=== PATIENT | female | born 1955 | race Caucasian/White ===

== ENCOUNTER 2025-07-02 09:42 | Outpatient (OUT) | payer SELFPAY ==
--- OUTSIDE RECORDS SUMMARY | 2022-09-15 10:15 | XMS_ITS | Continuity of Care Document ---
[facility] Address [address] [place] [address] Phone Care Team Providers Care Emergency Spill Response Technician Name Role Phone Leroy Osborne Unavailable Unavailable Procedures Procedure Date Admin Moderna Bvalent Booster 18 And Old er Moderna Bivalent Booster 18 And Older No v Admin influenza virus vac FLU VACC PRSV FREE INC ANTIG Admin influenza virus vac FLU VACC PRSV FREE INC ANTIG Admin pneumococcal vaccine PNEUMOCOCCAL VACCINE Admin influenza virus vac FLU VACC PRSV FREE INC ANTIG Admin influenza virus vac FLU VACC PRSV FREE INC ANTIG Admin pneumococcal vaccine PNEUMOCOCCAL VACC, 13 LI IM UDS Exempt FLU VAC NO PRSV 4 LI 3 YRS+ UDS Exempt IMMUNIZATION ADMIN FLU VAC NO PRSV 4 LI 3 YRS+ IMMUNIZATION ADMIN FLU VAC NO PRSV 4 LI 3 YRS+ FLU VAC NO PRSV 4 LI 3 YRS+ IMMUNIZATION ADMIN FLU VAC NO PRSV 4 LI 3 YRS+ FLU VAC NO PRSV 4 LI 3 YRS+ IMMUNIZATION ADMIN FLU VAC NO PRSV 4 LI 3 YRS+ Advance Directives Directive Yes / No Effective Date File Name No Information Encounters Encounter Description Practice Location Reason(s) For Visit Diagnoses Date Provider Providers Copied on Encounter [facility] [address], [place], [id number], [place] tel:[phone] [facility] No Information Visci DO Leroy. [address], [place], [id number], [place]. tel:[phone] [facility] [address], [place], [id number], [place] tel:[phone] [facility] No Information Visci DO Leroy. [address], [place], [id number], [place]. tel:[phone] [facility] [address], [place], [id number], [place] tel:[phone] [facility] No Information Visci DO Leroy. [address], [place], [id number], [place]. tel:[phone] [facility] [address], [place], [id number], [place] tel:[phone] [facility] No Information Visci DO Leroy. [address], [place], [id number], [place]. tel:[phone] [facility] [address], [place], [id number], [place] tel:[phone] [facility] No Information Visci DO Leroy. [address], [place], [id number], [place]. tel:[phone] [facility] [address], [place], [id number], [place] tel:[phone] COVID [facility] Encounter for screening for other viral diseases Visci DO Leroy. [address], [place], [id number], [place]. tel:[phone] [facility] [address], [place], [id number], [place] tel:[phone] [facility] No Information Roddy Figueroa. [address], [place], [id number], [place]. tel:[phone] [facility] [address], [place], [id number], [place] tel:[phone] [facility] No Information Roddy Figueroa. [address], [place], [id number], [place]. tel:[phone] [facility], [address] [place] [address], [id number], [place] tel:[phone] [facility] No Information Roddy Figueroa. [address], [place], [id number], [place]. tel:[phone] [facility] [address], [place], [id number], [place] tel:[phone] [facility] No Information Roddy Figueroa. [address], [place], [id number], [place]. tel:[phone] [facility] [address], [place], [id number], [place] tel:[phone] [facility] No Information Roddy Figueroa. [address], [place], [id number], [place]. tel:[phone] Family History Family Member Type Diagnosis Age At Onset No Information Immunizations Vaccine Date Status Comments -19 administered Source: New Imm unization Record Influenza, quadrivalent, hig h dose, injectable, split virus, preservative free, 0.7 mL dose, Fluzone High-Dose Quad administered Source: New Immuniza tion Record Influenza, quadrivalent, hig h dose, injectable, split virus, preservative free, 0.7 mL dose, Fluzone High-Dose Quad administered Source: New Immuniza tion Record Pneumo (2 yrs or older)(PPV) administered Source: New Immunization Record Influenza, quadrivalent, hig h dose, injectable, split virus, preservative free, 0.7 mL dose, Fluzone High-Dose Quad administered Source: New Immuniza tion Record Influenza, high dose seasonal administere d Source: New Immunization Record Pneumococcal conjugate PCV 13 administere d Source: New Immunization Record Influenza virus vaccine, quadrivalent, split virus, preservative free administered Note: Administered Kamran Salguerodanielle 08/29/2018. ; Source: New Immunization Record Influenza virus vaccine, injectable, quadrivalent, split virus, preservative free, 3 years or older Fluarix, Flulaval or Fluzone Quad administered Source: New Immuniza tion Record Influenza virus vaccine, injectable, quadrivalent, split virus, preservative free, 3 years or older Fluarix, Flulaval or Fluzone Quad administered Source: New Immuniza tion Record Influenza virus vaccine, injectable, quadrivalent, split virus, preservative free, 3 years or older Fluarix, Flulaval or Fluzone Quad administered Source: New Immuniza tion Record Payers Payer name Insurance type Covered constitution party ID Authoriza tion(s) Medicare PPS MB [id number] Medicare PPS MB [id number] Medicare PPS MB [id number] Medicare PPS MB [id number] Medicare PPS MB [id number] Medicare PPS MB [id number] Medicare PPS MB [id number] Social History Type Description Quantity Date Captured Comments Alcohol Use Details Unknown Caffeine Use Details Unknown Tobacco Use Status No Information Smoking Status No Information Sex Female Sexual Orientation Straight or heterosexual Gender Identity Female Chief Complaint And Reason For Visit No Information Reason For Referral Reason For Referral No Information Plan Of Treatment Date Type Action Status Goal Lipid panel. Due on 022 due Goal FOBT. Due on due Goal Colonoscopy. Due on due Goal Influenza vaccine. Due on Oc t due Goal Tdap. Due on due Goal PRAPARE ASSESSMENT. Due on N due Goal Depression screening. Due on due Goal Zoster vaccine (). Due on due Goal Mammogram. Due on due Goal Lipid panel. Due on due Goal FOBT. Due on due Goal Colonoscopy. Due on due Goal Influenza vaccine. Due on Oc t due Goal Tdap. Due on due Goal PRAPARE ASSESSMENT. Due on O ct due Goal Depression screening. Due on due Goal Zoster vaccine (). Due on due Goal Mammogram. Due on due History Of Present Illness Encounter Date Complaint History Of Prese nt Illness No Information Functional Status Date Functional Assessmen t No Information Instructions Date Instruction Additional Infor mation No Information Assessments Type Assessment Date No Information Patient Care Teams Name Effective Dates (start - stop) Status Members No Information
--- OUTSIDE RECORDS SUMMARY | 2025-07-02 09:43 | XMS_ITS | Clinical Summary ---
Author Organization [facility] Address [address] [place] [address] Care Team Providers Care Radiologist Physician Name Role Phone Vera Lesli HAMMONDS Primary Care Provider [phone] Allergies No known active allergies Medications hydroCHLOROthia zide (HYDRODiuril) 50 MG tablet 1 (one) time each day at the same time. Active losartan (Cozaar) 100 MG tablet 1 (one) time each day at the same time. Active Multiple Vitamins-Minera ls (Multivitamin Adults) tablet as directed Orally Active Multiple Vitamins-Minera ls (PreserVision AREDS 2) capsule as directed Orally Active potassium chloride CR (Klor-Con) 10 MEQ ER tablet 3 Active atorvastatin (Lipitor) 20 MG tablet 4 Active meloxicam (Mobic) 15 MG tablet .COMPLEX 4 Active albuterol HFA (Ventolin HFA) 90 mcg/act inhalerIndicati ons:Pneumonia of both lower lobes due to infectious organism Inhale 2 puffs every 4 (four) hours if needed for wheezing 18 g 5 06/03/20 26 Active benzonatate (Tessalon) 100 MG capsuleIndicati ons:Pneumonia of both lower lobes due to infectious organism Take 1 capsule (100 mg) by mouth 2 (two) times a day as needed for cough for up to 10 days 20 capsule 5 06/13/20 25 doxycycline (Vibramycin) 100 MG capsuleIndicati ons:Pneumonia of both lower lobes due to infectious organism Take 1 capsule (100 mg) by mouth in the morning and 1 capsule (100 mg) before bedtime. Do all this for 10 days. Take with at least 8 ounces (large glass) of water, do not lie down for 30 minutes after. 20 capsule 06/13/20 25 Active Problems Problem Noted Date Diagnosed Date Breast cancer screening other than mammogram 04/2024 Fibrocystic breast changes 08/21/2023 Hoarseness 08/21/2023 Hypercalcemia 08/21/2023 Hyperparathyroidism 08/21/2023 Status post parathyroidectomy 08/21/2023 Vocal cord paralysis 08/21/2023 Encounters Date Type Department Care Team Description 06/18/2025 Telephone [facility] [address] [place] [address] Gege Kohli MA 06/03/2025 12:45 PM EDT Ancillary Procedure [facility] [address] [place] [address] 06/03/2025 12:30 PM EDT Office Visit [facility] [address] [place] [address] Onur López, DO Pneumonia of both lower lobes due to infectious organism; Pharyngitis, unspecified etiology; Acute cough 06/03/2025 Travel from Last 3 Months Immunizations Immunization Administration Dates Next Due Influenza, injectable, quadrivalent, preservativ e free 08/19/2016 Influenza, seasonal, injectable, preservative fr ee 08/13/2017 Family History Medical History Relation Name Comments Suicidality Father Cancer Mother Diabetes Mother Heart disease Mother Hypertension Mother Cancer Mother's Sister Heart disease Mother's Sister Hypertension Mother's Sister No Known Problems Sister Relation Name Status Comments Father Mother Alive Mother's Sister Sister x2 Social History Tobacco Use Types Packs/Day Years Used Date Smoking Tobacco: Former Cigarettes Smokeless Tobacco: Never Tobacco Cessation:Counseling Given: Not Answered Alcohol Use Standard Drinks/Week Comments Never 0 (1 standard drink = 0.6 oz pure alcohol) caffeine intake: 1-2 cups per day Comments Unknown Sex and Gender Information Value Date Recorded Sex Assigned at Female 09/10/2023 4:19 PM EDT Legal Sex Female 6:36 PM EDT Gender Identity Female 09/10/2023 4:19 PM EDT Sexual Orientation Choose not to disclose 2022 4:19 PM EDT Last Filed Vital Signs Vital Sign Reading Time Taken Comments Blood Pressure 118/80 06/03/2025 12:28 PM EDT Pulse 104 06/03/2025 12:28 PM EDT Temperature 37.1 C (98.7 F) 06/03/2025 12:28 PM EDT Respiratory Rate - - Oxygen Saturation 94% 06/03/2025 12:28 PM EDT Inhaled Oxygen Concentration - - Weight 97.5 kg (215 lb) 06/03/2025 12:28 PM EDT Height 167.6 cm (5' 6 ) 09/18/2024 9:25 AM EST Body Mass Index 34.7 09/18/2024 9:25 AM EST Plan of Treatment Upcoming Encounters Date Type Department Care Team (Late st Contact Info) Description 07/07/2025 2:30 PM EDT Office Visit [facility] [address] [place] [address] Jerome Balderas, DO [address] [place] [address] 09/22/2025 9:45 AM EST Office Visit [facility] [address] [phone] Checo Bautista MD [address] [address] Health Maintenance Due Date Last Done Comments CT Colonography 1955 Colonoscopy 1955 FIT 1955 FOBT 1955 Sigmoidoscopy 1955 Influenza Vaccine (#1) 2025 , 08/29/2023, 08/18/2022, Additional history exists Mammogram 09/03/2025 09/03/2024, 07/15, 07/09/2021, Additional history exists Colorectal Cancer Screening 06/24/2027 FIT-DNA 06/24/2027 06/24/2024, 06/15/2021 Pneumococcal Vaccine: 65+ Years Completed , 10/01/2019 Procedures Procedure Name Priority Date/Time Associated Diagnosis Comments STREP DNA PROBE Routine 06/03/2025 1:14 PM EDT Pharyngitis, unspecified etiology XR CHEST 2 VIEWS STAT 06/03/2025 1:14 PM EDT Acute cough BI MAMMOGRAM SCREENING TOMOSYNTHESIS BILATERAL Routine 09/03/2024 11:38 AM EDT Encounter for screening mammogram for malignant neoplasm of breast from Last 3 Months or Most Recently Relevant to Health Maintenance Results * STREP DNA PROBE (06/03/2025 1:14 PM EDT) RESULT negative Negative Throat 06/03/2025 1:14 PM EDT Onur López DO POINT OF CARE TEST ENTER/ED IT ORDERABLES Final Result * XR chest 2 views (06/03/2025 1:14 PM EDT) Anatomical Region Laterality Modality Chest Radiographic Farida ging 06/03/2025 1:34 PM EDT Impressions 06/03/2025 1:35 PM EDT Bilateral lower lobe infiltrate. ELECTRONICALLY SIGNED BY: Valerio Madden DO Narrative 06/03/2025 1:35 PM EDT EXAMINATION: XR CHEST 2 VIEWS HISTORY: Cough TECHNIQUE: Frontal and lateral views of the chest. COMPARISON: None available FINDINGS: Atherosclerotic calcification of the thoracic aorta. Cardiomediastinal silhouette is within normal limits. Patchy bilateral lower lobe opacities. No pneumothorax or pleural effusion. No acute osseous abnormality. Procedure Note Valerio Madden DO - 06/03/2025 EXAMINATION: XR CHEST 2 VIEWS HISTORY: Cough TECHNIQUE: Frontal and lateral views of the chest. COMPARISON: None available FINDINGS: Atherosclerotic calcification of the thoracic aorta. Cardiomediastinalsilhouette is within normal limits. Patchy bilateral lower lobe opacities.No pneumothorax or pleural effusion. No acute osseous abnormality. IMPRESSION: Bilateral lower lobe infiltrate. ELECTRONICALLY SIGNED BY: Valerio Madden DO Onur López IMG XR PROCEDURES Final Res ult * Bilateral screening mammogram with tomosynthesis (09/03/2024 11:38 AM EDT) Anatomical Region Laterality Modality Breast Bilateral Mammography 09/03/2024 11:3 8 AM EDT Impressions 09/03/2024 11:50 AM EDT NO MAMMOGRAPHIC EVIDENCE OF MALIGNANCY. ROUTINE FOLLOW-UP IS RECOMMENDED IN ONE YEAR. RESULT CODE: 2 Benign Findings(s) DENSITY CODE: 2 (approximately 25-50% glandular) FOLLOW UP: 1YR The false-negative rate of mammography is approximately 10-percent. Management of a palpable abnormality must be based on clinical grounds. Patient was entered into a reminder system with a target due date for the next mammogram. Impression dictated by: Alan Polo M.D.09/03/2024 11:48 AM Dictation Location: [facility] Transcribed By: [facility] 09/03/24 1148 Dictated By: Alan Polo II, MD 09/03/24 1138 Signed By: <Electronically signed by Alan Polo II, MD in [place]> 09/03/24 1148 Narrative 09/03/2024 11:50 AM EDT [facility] [place] [address] [place] [address] Mammography Report Signed Patient: Chely Rogers MR#: [id number] : 1955 Acct:[id number] Age/Sex: 69 / F ADM Date: 09/03/24 Loc: [place] Room: Type: [facility] Attending Dr: Checo Bautista MD Copies to: MD Lesli Gamino DO Ordering Provider: Checo Bautista MD Date of Service: 09/03/24 MM/MM screening mammo BI w/CAD: yearly mamms CLINICAL DATA: Screening for malignancy. BILATERAL SCREENING MAMMOGRAMS - FULL FIELD DIGITAL WITH TOMOSYNTHESIS AND CAD Tomosynthesis craniocaudal and mediolateral oblique views of both breasts were obtained using low- dose digital technique. Comparison is made to prior studies from 08/14/2023, 08/09/2022, and 07/09/2021. This examination was reviewed with the aid of CAD. There are scattered fibroglandular densities. Benign-appearing lymph nodes are noted along the chest wall. Benign-appearing calcifications are present bilaterally. There are similar focal asymmetries bilaterally. There are no dominant masses, typically malignant calcifications or architectural distortion. There has been no significant interval change. MM/MM screening mammo BI w/CAD Procedure Note Alan Polo MD - 09/03/2024 [facility] [place] [address] [place] [address] Mammography Report Signed Patient: Chely Rogers EMR#: [id number] : 3Acct:[id number] Age/Sex: 69 / FADM Date: 09/03/24 Loc: [place] Room:Type: [facility] Attending Dr: Checo Bautista MD Copies to: MD Lesli Gamino DO Ordering Provider: Checo Bautista MD Date of Service: 09/03/24 MM/MM screening mammo BI w/CAD: yearly mamms CLINICAL DATA: Screening for malignancy. BILATERAL SCREENING MAMMOGRAMS - FULL FIELD DIGITAL WITH TOMOSYNTHESIS ANDCAD Tomosynthesis craniocaudal and mediolateral oblique views of both breastswere obtained using low- dose digital technique. Comparison is made to prior studies from08/14/2023, 08/09/2022, and 07/09/2021. This examination was reviewed with the aid of CAD. There are scattered fibroglandular densities. Benign-appearing lymphnodes are noted along the chest wall. Benign-appearing calcifications are present bilaterally. Thereare similar focal asymmetries bilaterally. There are no dominant masses, typically malignantcalcifications or architectural distortion. There has been no significant interval change. MM/MM screening mammo BI w/CAD IMPRESSION: NO MAMMOGRAPHIC EVIDENCE OF MALIGNANCY. ROUTINE FOLLOW-UP IS RECOMMENDED IN ONE YEAR. RESULT CODE: 2 Benign Findings(s) DENSITY CODE: 2 (approximately 25-50% glandular) FOLLOW UP: 1YR The false-negative rate of mammography is approximately 10-percent. Management of a palpable abnormality must be based on clinical grounds. Patient was entered into a reminder system with a target due date for thenext mammogram. Impression dictated by: Alan Polo M.D.09/03/2024 11:48 AM Dictation Location: [facility] Transcribed By: [facility] 09/03/24 1148 Dictated By: Alan Polo II, MD 09/03/24 1138 Signed By: <Electronically signed by Alan Polo II, MD inOV> 09/03/24 1148 Checo Oliver MD IMG BI PROCEDURES Final Resu lt from Last 3 Months or Most Recently Relevant to Health Maintenance Insurance MEDICARE [facility] Care Teams Radiologist Physician Relationship Specialty Start Date End Date Lesli Gamez DO PCP - General Family Medicine 07/26/23
--- OUTSIDE RECORDS SUMMARY | 2025-07-02 09:43 | XMS_ITS | Encounter Summary ---
Author Organization [facility] Address [address] [facility] [place] [address] Care Team Providers Care Attenuator Name Role Phone SamanthaGavin de jesusLeslijennifer HAMMONDS Primary Care Provider [phone] Encounter Details Date Type Department Care Team (Late st Contact Info) Description 06/18/2025 Telephone [facility] [address] [place] [address] Gege Kohli MA Social History Tobacco Use Types Packs/Day Years Used Date Smoking Tobacco: Former Cigarettes Smokeless Tobacco: Never Alcohol Use Standard Drinks/Week Comments Never 0 (1 standard drink = 0.6 oz pure alcohol) caffeine intake: 1-2 cups per day Comments Unknown Sex and Gender Information Value Date Recorded Sex Assigned at Female 09/10/2023 4:19 PM EDT Legal Sex Female 6:36 PM EDT Gender Identity Female 09/10/2023 4:19 PM EDT Sexual Orientation Choose not to disclose 2022 4:19 PM EDT documented as of this encounter Plan of Treatment Upcoming Encounters Date Type Department Care Team (Late st Contact Info) Description 07/07/2025 2:30 PM EDT [facility] [address] [place] [phone] Jerome Balderas DO [address] [place] [address] 09/22/2025 9:45 AM EST Office Visit [facility] [address] [address] Checo Bautista MD [address] [facility] [address] [place] [address] documented as of this encounter Visit Diagnoses Not on filedocumented in this encounter Care Teams Attenuator Relationship Specialty Start Date End Date Lesli Gamez DO PCP - General Family Medicine 07/26/23 documented as of this encounter
--- NOTE | 2025-07-02 10:00 | CA_ITS ---
Patient Name: SURYA CHEN MR#: [id number] : 1955 Exam Date: 07/02/2025 Ordering Doctor: VESNA MCKEON ECHOCARDIOGRAM REPORT PROCEDURE: CA ECHO DOPPLER COMPLETE INDICATIONS: Shortness of breath. former smoker, COPD, hypertension COMPARISON: None. DESCRIPTION: COMPLETE ECHOCARDIOGRAM Real-time transthoracic echocardiography with 2D, M-mode, spectral and color flow Doppler performed. QUALITY: Technical quality was good. LEFT VENTRICLE: Normal chamber size. Borderline left ventricular hypertrophy. Estimated left ventricular ejection fraction is 65%. LV EF: Normal left ventricular ejection fraction, (>55%). DIASTOLIC: Normal diastolic function. ATRIAL SEPTUM: Visually appears intact. LEFT ATRIUM: Normal chamber size. RIGHT ATRIUM: Normal chamber size. RIGHT VENTRICLE: Normal chamber size. Normal right ventricular systolic function. TRICUSPID VALVE: Normal mobility and thickness. No stenosis with mild regurgitation. No evidence of pulmonary hypertension. RVSP 29 mmHg MITRAL VALVE: Normal mobility and thickness. No evidence of mitral valve stenosis. There is no mitral annular calcification. Trivial mitral regurgitation. AORTIC VALVE: Normal trileaflet appearance. No visible sclerosis. Normal leaflet mobility. No evidence of aortic valve stenosis. No aortic regurgitation. AORTIC ROOT: Normal diameter and appearance, measuring 3.1 cm. Ascending aorta is normal in size, measuring 2.8 cm. PULMONIC VALVE: Normal thickness and mobility. No stenosis. No regurgitation. PERICARDIUM: Small circumferential pericardial effusion. No echocardiographic signs of tamponade physiology. IVC: Collapses with inspiration. IVC is normal in size. PLEURA: CONCLUSION: 1. Borderline left ventricular hypertrophy with normal systolic function. Estimated LVEF is 65%. 2. Normal right ventricular size and systolic function. 3. Mild tricuspid regurgitation. 4. Normal right-sided pressures. 5. Normal diastolic function. 6. Small circumferential pericardial effusion. No echocardiographic signs of tamponade physiology. Adult Echocardiography Procedure Report Left Ventricle LVEDD (3.7 - 5.6 cm): 3.93 cm LVESD (2.2 - 4.0 cm): 2.92 cm LVIVS thickness (0.6 - 1.2 cm): 1.13 cm LVPW thickness (0.5 - 1.0 cm): 1.00 cm e': 0.09 m/s E - e': 6.72 LVOT Max Gradient: 3.56 mm[Hg] LVOT Area (cm2): 0.94 m/s Peak Velocity (LVOT): 0.94 m/s Mean Velocity (LVOT): 0.66 m/s LVOT Diameter 2.06 cm Left Ventricular Ejection Fraction: 65 % Left Atrium LA Volume Index (2D A2C): 35.64 ml/m2 Left Atrium Systolic Dimension: 3.69 cm Mitral Valve MV E to A Ratio: 0.78 Mitral Valve A-Wave Peak Velocity: 0.75 m/s Mitral Valve E-Wave Peak Velocity: 0.58 m/s Right Ventricle Aorta AO Root Diam: 3.10 cm Ascending Ao Diam: 2.76 cm Aortic Valve AoV Area (Peak Ike): 2.14 cm2, 2.14 cm2 AoV Area (VTI): 2.21 cm2, 2.21 cm2 Peak Velocity(Antegrade Flow): 1.47 m/s Peak Gradient(Antegrade Flow): 8.67 mm[Hg] Mean Velocity(Antegrade Flow): 0.96 m/s Mean Gradient(Antegrade Flow): 4.31 mm[Hg] Velocity Time Integral: 29.98 cm Tricuspid Valve Peak Velocity (Regurgitant Flow): 2.57 m/s, 2.56 m/s Pulmonic Valve Peak Velocity: 0.85 m/s Peak Gradient: 2.89 mm[Hg] Right Atrium Right Atrium Systolic Pressure: 36.13 ml, 36.13 ml Dictated by: Aurelio Camara M.D. on 07/02/2025 at 18:06 Approved by: Aurelio Camara M.D. on 07/02/2025 at 18:09
== END 2025-07-02 09:43 | disposition home or self-care (01) ==
LOC: CARD 09:42
DX: R06.02 Shortness of breath (principal)
CPT/HCPCS: 93306